=== PATIENT | female | born 1955 | race Caucasian/White ===

== ENCOUNTER → 2017-08-02 | Outpatient (CLI) | payer MEDICAID | LOC: BRMIMAGING 13:09 | DX: Z12.31 Encounter for screening mammogram for malignant neoplasm of breast (principal) ==

== ENCOUNTER → 2017-11-01 | Outpatient (CLI) | payer MEDICAID | LOC: BRMIMAGING 10:08 | DX: N60.02 Solitary cyst of left breast (principal) | CPT/HCPCS: 76641-PO ==